=== PATIENT | male | born 1940 | race Caucasian/White ===

== ENCOUNTER 2018-04-19 23:19 | Inpatient (IN) | payer MEDICARE ==
[~2018-04-19] VITALS: Ht 180.3 cm; Wt 105.7 kg
--- NOTE | 2018-04-19 23:45 | NUR ---
Admission Note with Justification for Admission to [facility] Patient admitted to [facility] for protective oversight for emergency stabilization of acute psychiatric crisis. Pt admitted from: Hospital ER transported by Debbie franco Mode of arrival: POV Accompanied By: Family Precipitating behaviors that initiated intake and admission: Has been insisting on sex from to the degree that she left to stay with family out of town Description of failure of out patient attempts at stabilization in previous setting list behavior and medication trials: Went to ER for evaluation Behaviors and assessment findings upon admission: Calm and cooperative Plan: Admit for protective oversight for adjustment and stabilization of medications, behaviors and mood. Intense treatment regimen including groups, medication adjustments, therapy, consistent regimen for ADL's, self care, and sleep hygiene. Daily monitoring by Inpatient staff, Psychiatry, and Medical Physician.
[2018-04-20] MEDS ORDERED: ACETAMINOPHEN 325 MG TABLET PO PRN
[2018-04-20] MEDS ORDERED: METHYL SALICYLATE/MENTHOL TOPICAL OINTMENT 29GM TUBE. TP PRN
[2018-04-20] MEDS ORDERED: MAGNESIUM HYDROXIDE 2,400 MG/30 ML ORAL.SUSP. PO PRN
[2018-04-20] MEDS ORDERED: MAG HYDROX/AL HYDROX/SIMETH 30 ML ORAL.SUSP PO PRN
[2018-04-20 00:35] VITALS: BP 114/95
[2018-04-20] MEDS ORDERED: LISI10TA2 PO (01:22)
[2018-04-20] MEDS ORDERED: FURO20TA3 PO (01:22)
[2018-04-20] MEDS ORDERED: DONE10TA7 PO (01:22)
[2018-04-20] MEDS ORDERED: CITA40TA5 PO (01:22)
[2018-04-20] MEDS ORDERED: MEMA10TA PO (01:22)
[2018-04-20] MEDS ORDERED: POTA10TA10 PO (01:22)
[2018-04-20] MEDS ORDERED: ASPI81TA50 PO (01:22)
[2018-04-20] MEDS ORDERED: OLAN5TAB5 PO (01:24)
[2018-04-20 05:44] VITALS: BP 148/73
[2018-04-20 07:36] LABS: BASO # 0.1 x10^3/uL (0.0-0.2); BASO % 1 % (0-3); EOS # 0.3 x10^3/uL (0.0-0.7); EOS % 5 % (0-3); HEMATOCRIT 40.4 % (39.0-53.0); HEMOGLOBIN 13.5 g/dL (13.0-17.5); LYMPH # 2.4 x10^3/uL (1.0-4.8); LYMPH % 37 % (24-48); MEAN CORPUSCULAR HEMOGLOBIN 31 pg (25-35); MEAN CORPUSCULAR HGB CONC 34 g/dL (31-37); MEAN CORPUSCULAR VOLUME 94 fL (79-100); MONO # 0.7 x10^3/uL (0.0-1.1); MONO % 10 % (0-9); NEUT # 3.1 x10^3uL (1.8-7.7); NEUT % 47 % (31-73); PLATELET COUNT 167 x10^3/uL (140-400); RED BLOOD COUNT 4.31 x10^6/uL (4.30-5.70); RED CELL DISTRIBUTION WIDTH 14.2 % (11.5-14.5); WHITE BLOOD COUNT 6.6 x10^3/uL (4.0-11.0)
[2018-04-20 07:58] LABS: ALBUMIN 2.9 g/dL (3.4-5.0); ALBUMIN/GLOBULIN RATIO 0.9 (1.0-1.7); CALCIUM 8.6 mg/dL (8.5-10.1); GFR 72.3; MAGNESIUM 1.9 mg/dL (1.8-2.4); POTASSIUM 4.5 mmol/L (3.5-5.1); TOTAL BILIRUBIN 0.3 mg/dL (0.2-1.0); TOTAL PROTEIN 6.1 g/dL (6.4-8.2)
[2018-04-20] MEDS ORDERED: CITALOPRAM 20 MG TABLET. PO SCH (09:00)
--- NOTE | 2018-04-20 09:19 | NUR ---
Patient has made statements to staff that he will be signing himself out as soon as he can. Patient is a self sign, will continue to monitor.
--- NOTE | 2018-04-20 10:30 | NUR ---
Patient in bed wearing only underwear. Compliant with meds given whole. Oriented x4, person, "psych hospital", year, "because I fought with my ". Patient states he will be his current when he gets out of here. Reports that she is his 4th and they have no children together. Patient had been in day room earlier today during an exercise group.
[2018-04-20] MEDS: FUROSEMIDE 20 MG TABLET PO SCH (10:36)
[2018-04-20] MEDS: ASPIRIN ENTERIC COATED 81 MG TABLET.DR. PO SCH (10:36)
[2018-04-20] MEDS: POTASSIUM CHLORIDE 10 MEQ TABLET.ER. PO SCH (10:36)
[2018-04-20] MEDS: LISINOPRIL 10 MG TABLET PO SCH (10:36)
--- NOTE | 2018-04-20 12:05 | NUR ---
patient has refused breakfast and lunch. Staff attempted to persuade him both times but he continues to refuse to eat.
[2018-04-20 13:34] LABS: THYROID STIM HORMONE (TSH) 1.681 uIU/mL (0.358-3.740)
--- NOTE | 2018-04-20 14:30 | NUR ---
Attempted to meet and complete Activity Therapy Assessment; however, Pt. was sleeping.
[2018-04-20 16:34] VITALS: BP 121/59
[2018-04-20] MEDS ORDERED: CHOLECALCIFEROL (VITAMIN D3) 50,000 UNIT CAPSULE PO SCH ×2 (17:00→21:00)
[2018-04-20] MEDS: MEMANTINE 10 MG TABLET. PO SCH (20:16)
[2018-04-20] MEDS ORDERED: ATORVASTATIN CALCIUM 10 MG TABLET. PO SCH (21:00)
[2018-04-20] MEDS ORDERED: DONEPEZIL 23 MG TABLET PO SCH (21:00)
[2018-04-20 22:16] LABS: THYROXINE 6.6 ug/dL (4.5-12.0)
--- NOTE | 2018-04-20 23:01 | PDOC ---
Exam Note: Fran Note: Please also refer to the separate dictated note~for this date of service dictated separately.~Patient seen individually. Discussed the patient with Nursing staff reviewed the chart.~Reviewed interim history and current functioning. Reviewed vital signs,~Labs/ Radiology~and current medications noted below. Continue current treatment with the changes noted in the dictated addendum note Assessment: Vital Signs: Vital Signs Date Time Temp Pulse Resp B/P (MAP) Pulse Ox O2 Delivery O2 Flow Rate FiO2 04/20/18 16:34 98.2 79 17 121/59 (79) 96 Room Air Labs: Laboratory Tests Test 04/20/18 07:08 White Blood Count 6.6 x10^3/uL (4.0-11.0) Red Blood Count 4.31 x10^6/uL (4.30-5.70) Hemoglobin 13.5 g/dL (13.0-17.5) Hematocrit 40.4 % (39.0-53.0) Mean Corpuscular Volume 94 fL (79-100) Mean Corpuscular Hemoglobin 31 pg (25-35) Mean Corpuscular Hemoglobin Concent 34 g/dL (31-37) Red Cell Distribution Width 14.2 % (11.5-14.5) Platelet Count 167 x10^3/uL (140-400) Neutrophils (%) (Auto) 47 % (31-73) Lymphocytes (%) (Auto) 37 % (24-48) Monocytes (%) (Auto) 10 % (0-9) H Eosinophils (%) (Auto) 5 % (0-3) H Basophils (%) (Auto) 1 % (0-3) Neutrophils # (Auto) 3.1 x10^3uL (1.8-7.7) Lymphocytes # (Auto) 2.4 x10^3/uL (1.0-4.8) Monocytes # (Auto) 0.7 x10^3/uL (0.0-1.1) Eosinophils # (Auto) 0.3 x10^3/uL (0.0-0.7) Basophils # (Auto) 0.1 x10^3/uL (0.0-0.2) Sodium Level 136 mmol/L (136-145) Potassium Level 4.5 mmol/L (3.5-5.1) Chloride Level 103 mmol/L (98-107) Carbon Dioxide Level 30 mmol/L (21-32) Anion Gap 3 (6-14) L Blood Urea Nitrogen 23 mg/dL (8-26) Creatinine 1.0 mg/dL (0.7-1.3) Estimated GFR (Cockcroft-Gault) 72.3 BUN/Creatinine Ratio 23 (6-20) H Glucose Level 99 mg/dL (70-99) Calcium Level 8.6 mg/dL (8.5-10.1) Magnesium Level 1.9 mg/dL (1.8-2.4) Iron Level 46 ug/dL (65-175) L Total Iron Binding Capacity 263 ug/dL (250-450) Iron Saturation 17 % (15-34) Total Bilirubin 0.3 mg/dL (0.2-1.0) Aspartate Amino Transferase (AST) 18 U/L (15-37) Alanine Aminotransferase (ALT) 18 U/L (16-63) Alkaline Phosphatase 66 U/L (46-116) Total Protein 6.1 g/dL (6.4-8.2) L Albumin 2.9 g/dL (3.4-5.0) L Albumin/Globulin Ratio 0.9 (1.0-1.7) L Triglycerides Level 82 mg/dL (0-150) Cholesterol Level 293 mg/dL (0-200) H LDL Cholesterol, Calculated 224 mg/dL (0-100) H VLDL Cholesterol, Calculated 16 mg/dL (0-40) Non-HDL Cholesterol Calculated 240 mg/dL (0-129) H HDL Cholesterol 53 mg/dL (40-60) Cholesterol/HDL Ratio 5.0 Vitamin B12 Level 260 pg/mL (247-911) 25-Hydroxy Vitamin D Total 26.2 ng/mL (30-100) L Thyroid Stimulating Hormone (TSH) 1.681 uIU/mL (0.358-3.740) Thyroxine (T4) 6.6 ug/dL (4.5-12.0) Total Triiodothyronine (TT3) 109 ng/dL (71-180) Treponema pallidum Antibody Nonreactive (Nonreactive) Current Medications: Meds: Current Medications Acetaminophen (Tylenol) 650 mg PRN Q6HRS PRN PO PAIN / TEMP; Start 04/20/18 at 00:00 Multi-Ingredient Ointment (Analgesic [place]) 1 vilma PRN QID PRN TP MUSCLE PAIN; Start 04/20/18 at 00:00 Al Hydroxide/Mg Hydroxide (Mylanta Plus Xs) 15 ml PRN AFTMEALHC PRN PO DYSPEPSIA; Start 04/20/18 at 00:00 Magnesium Hydroxide (Milk Of Magnesia) 2,400 mg PRN QHS PRN PO CONSTIPATION; Start 04/20/18 at 00:00 Furosemide (Lasix) 20 mg DAILY PO Last administered on 04/20/18at 10:36; Start at 09:00 Lisinopril (Prinivil) 10 mg DAILY PO Last administered on 04/20/18at 10:36; Start 04/20/18 at 09:00 Olanzapine (ZyPREXA ZYDIS) 2.5 mg PRN Q2HR PRN PO ANXIETY / AGITATION; Start at 09:00 Citalopram Hydrobromide (CeleXA) 40 mg DAILY PO Last administered on 04/20/18at 10:36; Start 04/20/18 at 09:00; Stop 04/20/18 at 18:55; Status DC Donepezil HCl (Aricept) 23 mg HS PO Last administered on 04/20/18at 20:15; Start 04/20/18 at 21:00 Memantine (Namenda) 10 mg BID PO Last administered on 04/20/18at 20:16; Start 04/20/18 at 21:00 Potassium Chloride (Klor-Con) 10 meq DAILY PO Last administered on 04/20/18at 10: 36; Start 04/20/18 at 09:00 Aspirin (Aspirin Enteric Coated) 81 mg DAILY PO Last administered on 04/20/18at 10:36; Start 04/20/18 at 09:00 Atorvastatin Calcium (Lipitor) 10 mg QHS PO Last administered on 04/20/18at 20:16 ; Start 04/20/18 at 21:00 Vitamin D (Vitamin D3) 50,000 unit WEEKLY PO ; Start 04/20/18 at 17:00; Stop 04/20 at 17:37; Status DC Cyanocobalamin (Vitamin B-12) 1,000 mcg WEEKLY IM ; Start 04/27/18 at 09:00 Vitamin D (Vitamin D3) 50,000 unit WEEKLY PO Last administered on 04/20/18at 20: 17; Start 04/20/18 at 21:00 Duloxetine HCl (Cymbalta) 30 mg DAILY PO ; Start 04/21/18 at 09:00; Stop 04/23/18 at 12:00 Duloxetine HCl (Cymbalta) 60 mg DAILY PO ; Start 04/24/18 at 09:00 Active Scripts Active Reported Zyprexa Zydis (Olanzapine) 5 Mg Tab.rapdis 2.5 Mg PO PRN Q2HR PRN Namenda (Memantine Hcl) 10 Mg Tablet 10 Mg PO BID Lisinopril 10 Mg Tablet 10 Mg PO DAILY Aspir-Low (Aspirin) 81 Mg Tablet.dr 81 Mg PO Potassium Chloride 10 Meq Tablet.er 10 Meq PO DAILY Citalopram Hbr (Citalopram Hydrobromide) 40 Mg Tablet 40 Mg PO DAILY Donepezil Hcl 10 Mg Tablet 23 Mg PO HS Furosemide 20 Mg Tablet 20 Mg PO DAILY I have reviewed the current psychotropics carefully including drug interactions. Risk benefit ratio favors no change other than as noted in my dictated progress note. Diagnosis: Problems: (1) Anxiety disorder (2) Impulse control disorder (3) Mild cognitive disorder (4) Major depressive disorder, recurrent episode CORI ARCE MD Apr 20, 2018 23:01
--- NOTE | 2018-04-20 23:02 | HP ---
ADMIT DATE: 04/20/2018 PSYCHIATRIC PROGRESS NOTE This note covers elements, not covered in my initial note 04/20/2018. IDENTIFYING DATA: The patient is a 77-year-old male referred to us from Emergency Room at [place], [place] where he presented from home on account of some short term memory deficits, agitation, aggression, specifically towards his . He is refusing his medications, neglecting his ADLs, hypersexual towards his . Reportedly, he got on top of her and would not get off per information from the and ER. The states the patient has been extremely depressed. He has failed outpatient psychiatric interventions. Behaviors have been deemed dangerous, out of control, referred for inpatient psychiatric stabilization. CHIEF COMPLAINT: "I don't do those things." HISTORY OF PRESENT ILLNESS: Reportedly, the patient has been increasingly depressed according to his . He has been agitated, anxious, aggressive with some short term memory deficits, even though he remains reasonably oriented. The hypersexual behaviors towards his has been significant safety concern. When questioned on this the patient states his does not have agreed to have sex with him and this has gone on a long time and he was getting extremely agitated about this, but still minimizes what is alleged he did. He denies that he has been using alcohol, but the states he has been drinking 2 or 3 drinks a day and in fact had [address] from the ER to the hospital. He has had some sleep disturbance, appetite is fair. No clear suicidal or homicidal ideation. At previously received information from the ER staff, who evaluated the patient felt he was capable of making decisions about hospitalization and was reasonably oriented enough to do this. Had reviewed at some length on 04/19/2018, prior to the patient's admission. No clear history of bipolar disorder. PAST PSYCHIATRIC HISTORY: As above. PAST MEDICAL HISTORY: Coronary artery disease, history of CABG with bovine valve replacement, history of back surgery, hernia surgery, congestive heart failure, hypertension. ALLERGIES: Negative. CODE STATUS: Full code. ACCU-CHEKS: None. DIET: Regular. Takes medications whole. Ambulates up ad zachary. CURRENT PSYCHOTROPICS: Aricept 20 mg a day, Celexa 40 mg a day, Namenda 10 mg b.i.d., Zyprexa p.r.n. FAMILY HISTORY: Noncontributory. SOCIAL HISTORY: Alcohol abuse history as noted above and the sexual aggressive behavior noted above. No physical, sexual or elder abuse history is noted. REACTION TO HOSPITALIZATION: The patient reluctantly accepting it. ASSETS: Supportive and family and he lives at home. MENTAL STATUS EXAM: The patient was seen individually evening of 04/20/2018. He is oriented to himself, situation, knew it was April 2018, unaware of the date. 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 Speech is coherent, abstraction fair, computation somewhat impaired, language function intact, attention span short. Mood and affect somewhat dysphoric, anxious, labile. No active suicidal or homicidal ideation. IMPRESSION: Major depressive disorder, recurrent with psychotic features; anxiety disorder, unspecified; impulse control disorder, unspecified; mild cognitive impairment. Rest as above. PLAN: Admit to Geropsychiatry Unit at [facility]. I will see the patient daily individually from a psychiatric standpoint, medical followup per Dr. Boyce/Dr. Swanson. Continue the patient on his current psychotropics, but we will go ahead and change the Celexa to Cymbalta 30 mg a day for 3 days and 60 mg a day thereafter. Psychological testing will be requested with Dr. Burgos to clarify the patient's capacity to make decisions for his health and finances and for further evaluation of his mood symptoms. Estimated length of stay 10-12 days. DISPOSITION: Will be back home with outpatient treatment at the [facility] in [place], [place]. MAN Rafa ARCE MD DR: VASILIY/esther JOB#: [id number] / [id number]
[2018-04-21 00:09] LABS: HEMOGLOBIN A1C 5.3 % (4.8-5.6)
--- NOTE | 2018-04-21 00:09 | NUR ---
Nursing Note Pt states he wants his phone and wallet to get a hold of his family. States that he didn't do anything to get here, that his did all this to him because she wouldn't sleep with him. State they have not been in bed together for a really long time, and that she should have just complied with his request and this wouldn't have happened. He states that he feels like he is being stuck here and no one knows from his family where he is. Told patient that in fact he is not being held but that we need time to secure a good discharge plan for him. There is no cell phone or wallet on his belongings list. Pt is not able to call out to his children because he cannot remember the numbers.
--- NOTE | 2018-04-21 02:13 | CONS ---
DATE OF CONSULTATION: 04/20/2018 REASON FOR CONSULTATION: Medical management. HISTORY OF PRESENT ILLNESS: The patient is a 77-year-old male patient who was admitted on the account of being aggressive towards his refusing medication, neglecting ADLs, hypersexual towards his , all this in a background of impulse control disorder, psychotic disorder, unspecified with mild cognitive impairment, and he is here for inpatient psychiatric stabilization. PAST MEDICAL HISTORY: Significant for coronary artery disease, status post CABG, has also bovine valve replacement, hypertension, congestive heart failure, and alcohol abuse. PAST SURGICAL HISTORY: Significant for coronary artery bypass graft surgery, bovine valve replacement, back surgery, hernia repair as well as bilateral hip arthroplasty. ALLERGIES: He has no known drug allergies. MEDICATIONS: He is currently on following medications: He is on Aricept 23 mg daily, lisinopril 10 mg daily, aspirin 81 mg once a day, citalopram hydrobromide 40 mg daily, olanzapine 5 mg every 2 hours, Namenda 10 mg p.o. b.i.d., potassium chloride 10 mEq once a day, furosemide 20 mg once a day. FAMILY HISTORY: Unremarkable. SOCIAL HISTORY: He is and used to live with his . He is a heavy drinker. REVIEW OF SYSTEMS: Has per history of present illness. PHYSICAL EXAMINATION GENERAL: When I examined him, he was sitting comfortably in his chair, in no apparent respiratory distress. No pallor, jaundice, cyanosis, or thyromegaly. No jugular venous distension. No limb edema. VITAL SIGNS: His heart rate was 79, blood pressure 121/59, temperature was 98.2, respiratory rate was 17, and oxygen saturation was 96%. HEAD, EYES, EARS, NOSE, and THROAT: Normocephalic, atraumatic. NECK: Supple. HEART: Showed normal first and second heart sounds. No gallop, rub or murmur. CHEST: Clear to auscultation. No crepitation or rhonchi. ABDOMEN: Distended, soft, and nontender. No guarding or rigidity. No organomegaly. Hernial orifice intact. Bowel sounds normal. NEUROLOGIC: He is awake, alert, responding appropriately. Cranial nerves intact. EXTREMITIES: He moves extremities without difficulty, he ambulates with a walker. LABORATORY DATA: Showed a white cell count of 6600, hemoglobin 13.5, hematocrit 40, MCV 94, and platelet count of 167,000. Serum sodium was 136, potassium 4.5, chloride 103, bicarbonate 30, anion gap of 3, BUN 23, creatinine 1, estimated GFR was 72 mL per minute. Her glucose was 99, calcium was 8.6, and magnesium was 1.9. His serum iron was 46, TIBC was 263, and percent saturation was 17%. His total bilirubin, AST, ALT, alkaline phosphatase were normal. Total protein was 6.1, albumin 2.9. Serum triglycerides were 82, total cholesterol 293, LDL was 124, VLDL 16, and HDL cholesterol was 53, and cholesterol to HDL ratio was 5. His vitamin B12 is borderline low at 216 pg/mL. A 25-hydroxy vitamin D3 was low at 26 and TSH was 1.68. His treponema pallidum antibody was nonreactive. So, from a medical point of view, he has multiple medical problems that seemed to be stable. His vital signs are all within normal limits. All his labs are within acceptable range except perhaps his hyperlipidemia, his vitamin B12 is borderline low, and 25-hydroxyvitamin D was low also. PLAN: My plan is to start him on vitamin D as well as vitamin B12, I am not sure why he is not on any cholesterol lowering agent given that he has already had coronary artery disease and probably start him on Lipitor and we will follow his labs closely and decide on further management accordingly. Thank you, Dr. Mcdonald for allowing me to participate in the care of this patient. LES LANIER MD DR: RADHA/esther JOB#: [id number] / [id number]
[2018-04-21 06:11] VITALS: BP 116/56
[2018-04-21] MEDS: POTASSIUM CHLORIDE 10 MEQ TABLET.ER. PO SCH (08:04)
[2018-04-21] MEDS: ASPIRIN ENTERIC COATED 81 MG TABLET.DR. PO SCH (08:04)
[2018-04-21] MEDS: FUROSEMIDE 20 MG TABLET PO SCH (08:04)
[2018-04-21] MEDS: MEMANTINE 10 MG TABLET. PO SCH (08:04)
[2018-04-21] MEDS: LISINOPRIL 10 MG TABLET PO SCH (08:05)
[2018-04-21] MEDS ORDERED: DULoxetine HCL 30 MG CAPSULE.DR PO SCH (09:00)
--- NOTE | 2018-04-21 11:32 | NUR ---
Behavior Intervention Response and Plan: BIRP Note: Behavior: Assumed Care of patient, patient located in Hallway at shift change. Patient exhibited the following behavior Restless, Compliant, Cooperative. Brief assessment on rounds of vital signs, medication needs, lab studies, and pain. Treatment plan problems 1-2. Intervention: Patient assessed and the following interventions initiated safety checks 15 Minute Checks Cognitive Assessment , Head to toe Assessment , Medications. Response: After interactions and interventions patient responded in the following manner, Restless , Appropriate ,Compliant. Continue to assess behaviors and condition will continue to monitor throughout the shift as needed. Patient educated on ADL's, and hand hygiene. Plan: Continue to monitor Master Treatment Plan for patient's progress toward short term goals of Medication Compliance, No harm To self/ others, terminal manager goals to return to previous living setting vs placement. Continue to assess patient for changes in above assessment. Monitor for medication needs, pain, and safety concerns. Hourly rounding performed to ensure safe environment.
--- NOTE | 2018-04-21 11:33 | NUR ---
Patient anxious at times frequently comes to the window and states that "I signed myself in and now I want to sign myself out".
[2018-04-21 16:13] VITALS: BP 144/71
--- NOTE | 2018-04-21 16:17 | NUR ---
patient continues to ask to go home. Dr Mcdonald called gave order to discharge patient against medical advice, making sure that understands patient is leaving against medical advice. patient denies being suicidal or homicidal at this time. call placed to informed her that patient has been discharged and needs to be picked up agrees to come and knot picker cloth patient in 45 minutes.
--- NOTE | 2018-04-22 14:15 | DS ---
DATE OF DISCHARGE: 04/21/2018 DISCHARGE SUMMARY AND PSYCHIATRIC PROGRESS NOTE Discharge against medical advice. This is a late entry for 04/21/2018 and covers elements not covered in my initial note of 04/21/2018. REASON FOR ADMISSION: Please refer to the admission history for details. Briefly, the patient is a 77-year-old male, referred to us from the [facility] Emergency Room in [place], [place] after he presented there on account of being aggressive with his , refusing medications, neglecting his ADLs. He was reportedly hypersexual towards his , got on top of her, would not get off. He initially presented to the Emergency Room 2 days previously with similar problems, but the family decided they wanted to spend April 18 at home and then make a decision on his hospitalization. Reportedly, the behaviors persisted despite this hiatus and he came back to the Emergency Room and then referred to us for inpatient psychiatric stabilization. reported he has been increasingly depressed, angry, irritable. No active suicidal or homicidal ideation, however. SIGNIFICANT FINDINGS AND CLINICAL COURSE: Following admission, the patient was seen individually by myself. reported that he had been drinking about 3 drinks a day and in fact, he had 3 glasses of wine at [employer] on the way to the hospital. His appetite was poor on the unit, he had some mild cognitive impairment, did appear depressed. Denied suicidal or homicidal ideation and appeared to show some insight into his inappropriate behaviors towards his , but rationalized this by saying that his had refused to have any sexual contact with him and this was frustrating for him. All of this was being addressed with him and his Lexapro was substituted for Celexa due to out of substitution and then changed to Cymbalta 30 mg a day with a plan to increase to 60 mg a day in 3 days. Psychological testing had also been requested by Dr. Burgos. However, at this stage, the patient was insistent on being discharged against medical advice. The said that she would come and pick him up and then in fact nursing staff had been told to have her sign the against medical advice discharge papers with the patient in addition to speaking to the nursing poleyard supervisor to try and prevent the discharge and have him complete his treatment with us. Nevertheless, they were insistent on his discharge and he was discharged AMA on 04/21/2018. Prior to discharge on 04/21/2018, no active suicidal or homicidal ideation. REVIEW OF SYSTEMS: No CV, , pulmonary, eye system symptoms on review. MENTAL STATUS EXAM: Reasonably oriented. Speech coherent, abstraction fair, computation impaired, language function intact. Mood and affect showing some improvement, still somewhat anxious. He did have some short-term memory deficits. FINAL DIAGNOSES: Major depressive disorder, recurrent; anxiety disorder, unspecified; impulse control disorder, unspecified; mild cognitive impairment. Rest unchanged from admission. DISCHARGE MEDICATIONS: Please refer to EMRAD. DISCHARGE INSTRUCTIONS: The patient and family were advised to follow up outpatient for psychiatric care in [place], [place] and he left against medical advice. Time for discharge day management greater than 30 minutes. CORI ARCE MD DR: VASILIY/esther JOB#: [id number] / [id number]
[2018-04-24] MEDS ORDERED: DULoxetine HCL 60 MG CAPSULE.DR PO SCH (09:00)
[2018-04-27] MEDS ORDERED: CYANOCOBALAMIN (VITAMIN B-12) 1,000 MCG/ML VIAL IM SCH (09:00)
== END 2018-04-21 18:05 | disposition left against medical advice (07) | DRG 885 ==
LOC: GEROPSY 23:19
PROVIDERS: ADMIT Psychiatry & Neurology Psychiatry; ATTEND Psychiatry & Neurology Psychiatry
DX: F33.3 Major depressive disorder, recurrent, severe with psychotic symptoms (principal); F09 Unspecified mental disorder due to known physiological condition; F41.9 Anxiety disorder, unspecified; F63.9 Impulse disorder, unspecified; I25.10 Atherosclerotic heart disease of native coronary artery without angina pectoris; I50.9 Heart failure, unspecified; I11.0 Hypertensive heart disease with heart failure; G31.84 Mild cognitive impairment of uncertain or unknown etiology; Z96.643 Presence of artificial hip joint, bilateral; Z95.1 Presence of aortocoronary bypass graft; Z79.899 Other long term (current) drug therapy; Z95.2 Presence of prosthetic heart valve
CPT/HCPCS: 36415; 80053; 80061; 82306; 82607; 83036; 83540; 83550; 83735; 84436; 84443; 84480; 85025; 86592